=== PATIENT | female | born 1955 | race Caucasian/White ===

== ENCOUNTER 2016-05-28 07:19 | Day surgery (SDC) | payer BC ==
--- NOTE | ~2016-05-28 | EGD ---
EGD REPORT [facility] [address] [address] NAME: TK MANZO : [birth year] STATUS : REG [facility]#: [id number] AGE: 60 ADM/REG DATE : 05/28/16 MR#: [id number] REPORT SERV DATE: 05/28/16 DICTATED BY: GUSTAVO DELANEY DATE: 05/28/16 REPORT STATUS : Draft TRANSCRIBED BY: [facility] DATE: 05/28/16 Endoscopy Center Patient Name: Tk Manzo Date of : 1955 Attending MD: GUSTAVO DELANEY MD Procedure Date No Time: 05/28/2016 Procedure: Colonoscopy Indications: High risk colon cancer surveillance: Personal history of colonic polyps, FH of Colonic Polyps - 1st degree relative Referring MD: Stephani Turk MD Medicines: as per anesthesia Complications: No immediate complications. Procedure: Pre-Anesthesia Assessment: - ASA Grade Assessment: II - A patient with mild systemic disease. After I obtained informed consent, the scope was passed under direct vision. Throughout the procedure, the patient's blood pressure, pulse, and oxygen saturations were monitored continuously. The [facility] [id number] was introduced through the anus and advanced to the cecum, identified by appendiceal orifice and ileocecal valve. The colonoscopy was performed without difficulty. The patient tolerated the procedure well. The quality of the bowel preparation was adequate to identify polyps. Findings: The perianal and digital rectal examinations were normal. A few small-mouthed diverticula were found in the sigmoid colon. Internal hemorrhoids were found during endoscopy and were mild. Impression: - Diverticulosis in the sigmoid colon. - Internal hemorrhoids. Recommendation: - Repeat colonoscopy in 5 years for surveillance. Procedure Code(s): --- Professional --- 91136, Colonoscopy, flexible, proximal to splenic flexure; diagnostic, with or without collection of specimen(s) by brushing or washing, with or without colon decompression (separate procedure) Diagnosis Code(s): --- Professional --- K64.8, Other hemorrhoids K57.30, Diverticulosis of large intestine without EGD REPORT [facility] [address] [id number] NAME: TK MANZO : [birth year] STATUS : REG [facility] PAT#: [id number] AGE: 60 ADM/REG DATE : 05/28/16 MR#: [id number] REPORT SERV DATE: 05/28/16 DICTATED BY: GUSTAVO DELANEY. DATE: 05/28/16 REPORT STATUS : Draft TRANSCRIBED BY: [employer] DATE: 05/28/16 perforation or abscess without bleeding Z86.010, Personal history of colonic polyps Z83.71, Family history of colonic polyps CPT copyright 2013 [employer]. All rights reserved. The codes documented in this report are preliminary and upon opera singer review may be revised to meet current compliance requirements. GUSTAVO DELANEY MD 05/28/2016 10:01 AM This report has been signed electronically. Number of Addenda: 0 Note Initiated On: 05/28/2016 9:30 AM Scope Withdrawal Time 0 hours 6 minutes 12 seconds [id number] [id number]
[~2016-05-28 07:19] MED LIST: ASAB PO; ATEN25 PO; ESTRACE1 MG PO; LEXAPRO10 PO; PREV30 PO; PROMETRIUM200 MG PO; PROTONIX PO; VIVELLE SY0.05 MG/24 TOP; VIVELLE-DOT0.05 MG TOP; ZOCOR40 PO
== END 2016-05-28 23:59 | disposition home or self-care (01) ==
LOC: DMU 07:19
PROVIDERS: Internal Medicine Gastroenterology
PROC: 0DJD8ZZ Inspection of Lower Intestinal Tract, Via Natural or Artificial Opening Endoscopic (ICD-10-PCS; principal; 2016-05-28 08:30)
DX: Z12.11 Encounter for screening for malignant neoplasm of colon (principal); K57.30 Diverticulosis of large intestine without perforation or abscess without bleeding; K64.9 Unspecified hemorrhoids; K21.9 Gastro-esophageal reflux disease without esophagitis; I10 Essential (primary) hypertension; E78.00 Pure hypercholesterolemia, unspecified; Z86.010 Personal history of colon polyps; Z88.2 Allergy status to sulfonamides; Z88.1 Allergy status to other antibiotic agents; Z88.5 Allergy status to narcotic agent; Z79.82 Long term (current) use of aspirin; Z79.818 Long term (current) use of other agents affecting estrogen receptors and estrogen levels; Z79.899 Other long term (current) drug therapy; Z96.1 Presence of intraocular lens; Z98.42 Cataract extraction status, left eye; Z90.710 Acquired absence of both cervix and uterus; Z98.890 Other specified postprocedural states